=== PATIENT | female | born 1955 | race Caucasian/White ===

== ENCOUNTER → 2021-06-02 | Outpatient (CLI) | payer MEDICAID ==
[~2021-06-02] MED LIST: RT-ALBUTEROL SULF 2.5 MG/3 ML PRE-MIX VIAL INH ONE
== END ==
LOC: RT 15:45
PROVIDERS: ATTEND Pediatrics
DX: J43.9 Emphysema, unspecified (principal)
CPT/HCPCS: 94060; 94726; 94729

== ENCOUNTER → 2021-12-20 | Outpatient (CLI) | payer MEDICAID ==
--- NOTE | 2021-12-20 19:14 | Diagnostic Imaging Report ---
PROCEDURE: MRI lumbar spine without contrast, 12/20/2021. TECHNIQUE: Multiplanar, multisequence MRI of the lumbar spine was performed without contrast. INDICATION: Involuntary movements. Low back pain history of breast carcinoma COMPARISONS: None FINDINGS: There is minimal grade 1 anterolisthesis at L4-L5 with remaining alignment maintained. Vertebral body heights are preserved. No suspicious osseous lesions appreciated. The tip of the conus unremarkable in appearance and location. L1-L2: There is disc desiccation. There is bilateral facet and ligamentum flavum hypertrophy. There is no central stenosis. The neural foramina patent. L2-L3: There is disc desiccation. There is bilateral facet hypertrophy. There is no central stenosis. The neural foramina appear patent. L3-L4: There is disc desiccation. There is minimal broad-based bulging disc material with bilateral facet and ligamentum flavum hypertrophy. There is no central stenosis. Neural foramina patent. L4-L5: There is disc desiccation with a broad-based bulging disc. There is bilateral facet and ligamentum flavum hypertrophy. There is no significant central stenosis. There is moderate bilateral neural foraminal narrowing. L5-S1: There is disc desiccation with a broad-based bulging disc. There is minimal bilateral facet hypertrophy. There is no central stenosis. The neural foramina patent. The visualized intra-abdominal structures unremarkable. IMPRESSION: 1. Degenerative findings predominantly at L4-L5 and L5-S1 without central stenosis. Bilateral moderate neural foraminal narrowing noted at L4-L5. 2. Not mentioned in the body of the report and only seen on the localizer images are hypointense linear foci within the femoral heads bilaterally suspicious for AVN. Correlate clinically. Dedicated imaging of the hips could provide better characterization. Dictated by: Dictated on workstation # [id number]
== END ==
LOC: RAD 13:15
PROVIDERS: ATTEND Pediatrics
DX: M47.816 Spondylosis without myelopathy or radiculopathy, lumbar region (principal); M47.817 Spondylosis without myelopathy or radiculopathy, lumbosacral region; M48.061 Spinal stenosis, lumbar region without neurogenic claudication; Z85.3 Personal history of malignant neoplasm of breast
CPT/HCPCS: 72148